=== PATIENT | female | born 1980 ===

== ENCOUNTER 2018-08-01 18:35 | Emergency (ER) | payer SELFPAY ==
[2018-08-01 18:36] VITALS: BP 128/91; PULSE 85; RESP 16; TEMP 36.7; O2SAT 99; BMI 24.5
--- NOTE | 2018-08-01 19:43 | ED.RN ---
PT NO LONGER WANTING TO WAIT. WILL HAVE CHECKED LATER
--- NOTE | 2018-08-01 19:56 | ED.RN ---
PT NO LONGER WANTS TO WAIT TO BE SEEN
== END 2018-08-01 19:43 | disposition left against medical advice (07) ==
LOC: ED 20:28
PROVIDERS: Emergency Provider Emergency Medicine; Family Provider Internal Medicine; PCP Internal Medicine
DX: T14.8XXA Other injury of unspecified body region, initial encounter (principal); X58.XXXA Exposure to other specified factors, initial encounter; Y93.9 Activity, unspecified; Y92.9 Unspecified place or not applicable; Y99.9 Unspecified external cause status